=== PATIENT | male | born 1985 | race Caucasian/White ===

== ENCOUNTER → 2025-01-07 | Outpatient (CLI) | payer BC | END | disposition home or self-care (01) | LOC: LABPRL 12:48 | PROVIDERS: ATTEND Physician Assistant | DX: Z98.52 Vasectomy status (principal); Z53.9 Procedure and treatment not carried out, unspecified reason ==

== ENCOUNTER → 2025-01-30 | Outpatient (CLI) | payer BC | END | disposition home or self-care (01) | LOC: LABPRL 10:22 | PROVIDERS: ATTEND Physician Assistant | DX: Z53.9 Procedure and treatment not carried out, unspecified reason (principal) ==